=== PATIENT | female | born 1990 | race Caucasian/White ===

== ENCOUNTER 2017-03-06 13:40 | Day surgery (SDC) | payer OTHER ==
[~2017-03-06 13:40] MED LIST: RINGER'S SOLUTION,LACTATED 1,000 ML IV PRN
[2017-03-06] MEDS ORDERED: RINGER'S SOLUTION,LACTATED 1,000 ML IV PRN (16:39)
--- NOTE | 2017-03-06 16:58 | OR ---
Operative Report - Dictated Report Narrative: Operative Report Date of operation: 03/06/2017 Preoperative diagnosis: Esophageal obstruction from foreign body Postoperative diagnosis: Esophageal obstruction from steak (retrieved). Subjective distal esophageal narrowing. CLOtest pending Operation: EGD with removal of esophageal foreign body and gastric biopsy Surgeon: Dr Solo Anesthesia: GENERAL ENDOTRACHEAL DEBORAH SANDY CRNA Indications for procedure: The patient is a 27-year-old female who was eating steak last evening and had a large at the subxiphoid level. She had been unable to take liquids without vomiting. She did vomit a piece of steak earlier however still unable to swallow water. Findings: Large piece of steak in the esophagus (retrieved intact) subjective narrowing of the distal portion of the esophagus without mucosal lesion. Normal appearing stomach and duodenum (CLOtest pending) Narrative of procedure: The patient was identified preoperatively, and prior to the administration of anesthetic a multidisciplinary timeout was observed With the patient in the supine position, SCDs were placed, and rapid sequence general endotracheal anesthetic administered. The flexible fiberoptic gastroscope was advanced into the posterior pharynx which appeared normal. The endotracheal tube was seen to be in good position. The supraglottic larynx appeared normal. The scope was advanced under direct vision into the proximal esophagus which appeared normal. The esophagus appeared freely distensible with normal mucosa. At the level of the aortic arch was large piece of steak which could be grasped with an endoscopic snare and removed in conjunction with the gastroscope. The scope was then readvanced into the esophagus which was now unobstructed. The esophageal mucosa appeared normal down to the gastroesophageal junction which was sharp and only mildly edematous. The GE junction appeared distensible. The scope was advanced into the stomach which was insufflated with air. The gastric mucosa appeared grossly normal specifically no ulcerated or neoplastic lesions were appreciated including a retroflexed view of the gastric fundus which demonstrated a normal appearing side of the GE junction. The scope was redirected toward the pylorus. The pylorus appeared patent. The scope was advanced into the duodenal bulb which appeared normal. The scope was advanced further to the horizontal portion of the duodenum which appeared normal, specifically the villous architecture appeared well preserved and clear bile was present. The scope was slowly withdrawn through the duodenal bulb with confirmation that no active ulcer was present. The scope was withdrawn into the stomach and a customer response representative biopsy of gastric mucosa obtained for CLOtest. The biopsy site was seen to be hemostatic. The insufflated air was removed from the stomach. The scope was then slowly withdrawn through the GE junction with confirmation that no mucosal pathology was present. Photographs were obtained of the distal esophagus and GE junction. The scope was withdrawn from the patient, and the procedure terminated. The patient tolerated the anesthetic and procedure well without complication and was transferred to the recovery room awake, extubated, and in stable condition. The patient remained stable throughout a period of postoperative observation, was able to tolerate po intake, and was up without assistance. I shared the operative findings with her and her , and she was given copies of the photographs which appear in the medical record. She was discharged home with instructions not to engage in hazardous activity today, but may return to normal activity tomorrow and advance diet as tolerated. She is to continue medications as listed in the history and physical exam. I made arrangements to contact the patient for follow-up and with the biopsy report and will make further recommendation based upon that result. Reviewed and electronically signed
[2017-03-06 17:52] VITALS: BP 127/84
== END 2017-03-06 13:41 | disposition home or self-care (01) ==
LOC: SUR 13:40
PROVIDERS: ATTEND Surgery
PROC: 0DC58ZZ Extirpation of Matter from Esophagus, Via Natural or Artificial Opening Endoscopic (ICD-10-PCS; 2017-03-06)
PROC: 0DB68ZX Excision of Stomach, Via Natural or Artificial Opening Endoscopic, Diagnostic (ICD-10-PCS; principal; 2017-03-06 15:30)
DX: T18.128A Food in esophagus causing other injury, initial encounter (principal); K22.2 Esophageal obstruction; I10 Essential (primary) hypertension; K27.9 Peptic ulcer, site unspecified, unspecified as acute or chronic, without hemorrhage or perforation; E66.9 Obesity, unspecified; Z68.31 Body mass index [BMI] 31.0-31.9, adult